=== PATIENT | male | born 1985 | race African-American/Black ===

== ENCOUNTER 2017-10-25 06:59 | Day surgery (SDC) | payer OTHER ==
[~2017-10-25 06:59] MED LIST: AMLODIPINE BES2.5 MG PO; AMLODIPINE BESY10 MG PO; AMLODIPINE BESYL5 MG PO; BENZTROPINE MESY1 MG PO; CALCITRIOL0.5 MCG PO; CELLCEPT500 MG PO; CLINDAMAX TP; COGENTIN1 MG PO; DULCOLAX5 MG PO; FEOSOL325 MG PO; FERROUS SULFAT325 MG PO; GLIPIZIDE ER2.5 MG PO; IRON325 M1 PO; LEVO-T50 MCG PO; LISINOPRIL10 MG PO; LISINOPRIL5 MG PO; MAG-OX400 M1 PO; MAGNESIUM400 M1 PO; METOPROLOL SUC200 MG PO; METOPROLOL TART50 MG PO; MYCOPHENOLATE500 MG PO; NORVASC10 M1 PO; NORVASC10 MG PO; NORVASC5 MG PO; PANTOPRAZOLE SO20 MG PO; PANTOPRAZOLE SO40 MG PO; PREDNISONE2.5 MG PO; PREDNISONE5 M2 PO; PREDNISONE5 MG PO; PRILOSEC40 MG PO; PRINIVIL5 MG PO; PROTONIX40 MG PO; RAPAMUNE0.5 MG PO; RAPAMUNE1 MG PO; RAPAMUNE2 MG PO; RISPERDAL1 MG PO; RISPERDAL2 MG PO; RISPERDAL4 MG PO; RISPERIDONE2 MG PO; SIMVASTATIN20 MG PO; SODIUM BICARBO325 MG PO; TOPROL XL100 MG PO; TOPROL XL200 MG PO; TOPROL XL50 MG PO; VITAMIN D-3 401 EACH PO; ZESTRIL,PRINIV2.5 MG PO; ZOCOR20 MG PO
== END 2017-10-25 09:27 | disposition home or self-care (01) ==
LOC: CATH 06:59
PROVIDERS: Surgery
PROC: 05HY33Z Insertion of Infusion Device into Upper Vein, Percutaneous Approach (ICD-10-PCS; principal; 2017-10-25)
PROC: 05CY0ZZ Extirpation of Matter from Upper Vein, Open Approach (ICD-10-PCS; principal; 2017-10-25)
PROC: 3E03317 Introduction of Other Thrombolytic into Peripheral Vein, Percutaneous Approach (ICD-10-PCS; principal; 2017-10-25)
PROC: B51W1ZZ Fluoroscopy of Dialysis Shunt/Fistula using Low Osmolar Contrast (ICD-10-PCS; principal; 2017-10-25)
PROC: 057Y3DZ Dilation of Upper Vein with Intraluminal Device, Percutaneous Approach (ICD-10-PCS; principal; 2017-10-25)
DX: T82.868A Thrombosis due to vascular prosthetic devices, implants and grafts, initial encounter (principal); N18.6 End stage renal disease; Z99.2 Dependence on renal dialysis
CPT/HCPCS: 82948; 87641; C1725; C1757; C1769; C1894; C2628; J0690; J1644; J2250; J3010; S0020

== ENCOUNTER 2018-05-27 10:47 | Day surgery (SDC) | payer OTHER | END 2018-05-27 17:15 | disposition home or self-care (01) | LOC: CATH 10:47 | DX: T82.858A Stenosis of other vascular prosthetic devices, implants and grafts, initial encounter (principal); Y83.2 Surgical operation with anastomosis, bypass or graft as the cause of abnormal reaction of the patient, or of later complication, without mention of misadventure at the time of the procedure; I12.0 Hypertensive chronic kidney disease with stage 5 chronic kidney disease or end stage renal disease; N18.6 End stage renal disease; Z99.2 Dependence on renal dialysis | CPT/HCPCS: 87641; C1725; C1757; C1769; C1887; C1894; J0690; J1644; J2250; J3010; S0020 ==